=== PATIENT | male | born 1990 | race Caucasian/White ===

== ENCOUNTER 2019-03-24 21:54 | Emergency (ER) | payer SELFPAY ==
[2019-03-24 22:03] VITALS: BP 134/83; PULSE 124; RESP 24; TEMP 36.7; O2SAT 96; BMI 46.6
[2019-03-24 23:13] VITALS: BP 115/55; PULSE 113; RESP 16; O2SAT 95
--- NOTE | 2019-03-24 23:45 | ED_ITS ---
HPI - Overdose General Chief Complaint: Toxicology Problem Stated Complaint: took Gummies not well threw up Time Seen by Provider: 03/24/19 22:11 Source: patient Mode of arrival: Ambulatory Limitations: no limitations History of Present Illness HPI Narrative: Patient comes emergency department after taking 2 THC gummies instead of the recommended 1 this evening. Patient states that about 30 minutes later, he began to feel jittery and have muscle spasms. He states that his heart was racing and he then became nauseated and vomited. He states he was feeling just fine before taking the got knees. Patient states his heart still feels like it is going somewhat faster than normal, but that his muscle spasms and nausea have resolved. Patient denies any chest pain. No cough or shortness of breath. no fevers. Patient states he has never taken THC previously. He did not take anything else with it. No other complaints at this time. Related Data Allergies Allergy/AdvReac Type Severity Reaction Status Date / Time No Known Drug Allergies Allergy Verified 03/24/19 22:05 Review of Systems Constitutional Constitutional: Denies chills, Denies fatigue, Denies fever(s), Denies frequent falls, Denies lethargy and Denies weakness Eyes Eyes: Denies change in vision, Denies eye discharge, Denies irritation and Denies loss of vision ENT Ears, Nose, Mouth, and Throat: Denies change in voice, Denies dizziness, Denies neck pain, Denies sore throat and Denies throat swelling Cardiovascular Cardiovascular: Denies chest pain, Denies irregular heart rhythm, Denies lightheadedness, Reports palpitations, Denies dyspnea, Denies dyspnea on exertion and Denies orthopnea Respiratory Respiratory: Denies cough, Denies dyspnea, Denies dyspnea on exertion and Denies wheezing Gastrointestinal Gastrointestinal: Denies abdominal pain, Denies change in bowel habits, Denies diarrhea, Reports nausea and Reports vomiting Genitourinary Genitourinary: Denies hematuria, Denies flank pain, Denies urinary incontinence and Denies urinary urgency Musculoskeletal Musculoskeletal: Denies back pain, Denies muscle weakness, Denies neck pain, Denies numbness and Denies tingling Integumentary/Breasts Skin/Breast: Denies pruritus, Denies erythema, Denies rash and Denies wounds Neurologic Neurologic: Denies behavioral changes, Denies confusion, Denies dizziness, Denies frequent falls, Denies loss of vision, Denies numbness, Denies tingling and Denies weakness Psychiatric Psychiatric: Denies anxiety, Denies behavioral changes, Denies confusion, Denies depression, Denies homicidal ideation and Denies suicidal ideation Endocrine Endocrine: Denies fatigue, Denies flushing and Reports palpitations Hematologic/Lymphatic Hematologic/Lymphatic: Denies easy bruising Allergic/Immunologic Allergic/Immunologic: Denies urticaria, Denies throat swelling and Denies wheezing Patient History Medical History Obesity (Acute) Social History Smoking Status: Current every day smoker tobacco type: cigarettes Substance Use Type: marijuana Exam Initial Vital Signs Initial Vital Signs: Vital Signs Temperature 98.1 F 03/24/19 22:03 Pulse Rate 124 H 03/24/19 22:03 Respiratory Rate 24 03/24/19 22:03 Blood Pressure 134/83 03/24/19 22:03 Pulse Oximetry 96 03/24/19 22:03 Const General: cooperative and No intoxicated appearing Nutritional Appearance: well nourished Orientation: alert, awake, oriented x3 and not confused [facility] Head: normocephalic and atraumatic Ears: external ears normal and TM's normal bilaterally Nose: external nose normal and No nasal discharge Face and sinus: sinuses nontender, face symmetric, no sinus tenderness and No dry mucous membranes Mouth: oral mucosae normal and moist mucous membranes Teeth and gingiva: dentition normal Throat: tonsils normal and uvula midline Eyes General: appearance normal, both eyes and all related structures Eyelids: eyelids normal Conjunctivae: conjunctivae normal Sclera: sclerae normal Pupils: PERRL EOM: EOM intact bilaterally Neck Neck: normal visual inspection, trachea midline, No lymphadenopathy, No midline deformity and No JVD Lymphatic: No lymphedema Chest Chest: normal inspection of the chest Resp Effort & Inspection: normal respiratory effort, able to speak in complete sentences, no respiratory distress and no use of accessory muscles Auscultation: clear to auscultation bilaterally, no rales, no rhonchi and no wheezes Cardio Rate: regular rate Rhythm: regular rhythm Heart Sounds: no click, no gallops, no murmurs and no rubs Pulses: normal peripheral pulses GI Inspection: non-distended Palpation: soft, no hepatosplenomegaly, No guarding, No pulsatile mass and No tender Auscultation: normal bowel sounds Back/Spine/Pelvis Back: No CVA tenderness Cervical Spine: cervical ROM normal and No pain with cervical ROM Thoracic/Lumbar Spine: thoracic and lumbar spine normal to inspection Skin General: no rashes or lesions noted, No jaundice and No petechiae Neuro General: alert, awake, oriented x3 and no focal motor deficits Speech: speech normal Motor: muscle tone normal throughout and strength 5/5 throughout Sensory Exam: no sensory deficits noted Extrem General: full ROM, no clubbing, cyanosis or edema, no pedal edema and no calf tenderness Psych Appearance: well kempt Mental Status: mental status grossly normal Attitude: cooperative Thought Content: normal and suicidality Judgment: judgment good Course Course Course Narrative: The patient was observed in the emergency department and was found to be feeling quite a bit better. He was still mildly tachycardic on re- evaluation, but I did explain to him that this is part of the affects of the extra THC he took, and will wear off over the ensuing hours. EKG is unremarka ble this time. The patient overall is clinically much better, and I feel he is stable for discharge home. We have discussed home management of the symptoms, and the need to take only the amount of THC that directed on the bottle to avoid this kind of reaction in the future. We have discussed the usual indications for return. Vital Signs Vital signs: Vital Signs - 8 hr 03/24/19 23:13 03/24/19 23:54 Pulse Rate 113 H 109 H Respiratory Rate 16 16 Blood Pressure 115/67 Blood Pressure [Right Arm] 115/55 L Pulse Oximetry 95 97 MDM - Overdose Medical Records Attestation: I reviewed the patient's medical records. ECG Data Attestation: I personally reviewed and interpreted this ECG as follows: (See below) Interpretation: Twelve lead EKG performed March 16, 2019 at 10:07 p.m., as follows: Regular ventricular rhythm with a rate of 121 beats per minute [place] interval 172 millisecond QRS duration 106 millisecond QTC interval 413 millisecond No ectopy No significant ST T wave changes Interpretation: Sinus tachycardia; no signs of acute ischemia; abnormal rhythm EKG as interpreted by ED MD. Discharge Plan Departure Patient Disposition: Home Clinical Impression: Marihuana (derivatives) overdose Qualifiers: Encounter type: initial encounter Injury intent: accidental or unintentional Qualified Code(s): T40.7X1A - Poisoning by cannabis (derivatives), accidental (unintentional), initial encounter Discharge Date/Time: 03/24/19 23:55 Referrals: [facility] [Provider Group]
[2019-03-24 23:54] VITALS: BP 115/67; PULSE 109; RESP 16; O2SAT 97
== END 2019-03-24 23:55 | disposition home or self-care (01) ==
PROVIDERS: Emergency Provider Emergency Medicine
DX: T40.7X1A Poisoning by cannabis (derivatives), accidental (unintentional), initial encounter (principal); R00.0 Tachycardia, unspecified
CPT/HCPCS: 36415; 93005; 93010; 99282; 99283